=== PATIENT | male | born 1950 | race Two or more races ===

== ENCOUNTER 2023-12-31 10:42 | Emergency (ER) | payer MEDICARE, OTHER ==
[~2023-12-31] VITALS: Ht 175.3 cm; Wt 75.7 kg
[2023-12-31 10:44] VITALS: TEMP 98
[2023-12-31 11:18] VITALS: BP 131/76; PULSE 72; RESP 16; O2SAT 100
[2023-12-31] MEDS ORDERED: LIDO700A32 TOP (11:21)
== END 2023-12-31 11:36 | disposition home or self-care (01) ==
LOC: ER 10:43
DX: M25.511 Pain in right shoulder (principal); Z88.2 Allergy status to sulfonamides; Z88.8 Allergy status to other drugs, medicaments and biological substances; Z79.899 Other long term (current) drug therapy
CPT/HCPCS: 29105; 29125; 73030; 99284; A4565

== ENCOUNTER 2024-03-16 10:56 | Inpatient (IN) | payer MEDICARE ==
[~2024-03-16] VITALS: Ht 175.3 cm; Wt 77.3 kg
[~2024-03-16 10:56] MED LIST: LIDO700A32 TOP
[2024-03-16 12:23] LABS: ALBUMIN 2.7 G/DL (3.4-5.0); ANION GAP 12 (8-16); BLOOD UREA NITROGEN 25 MG/DL (7-18); BUN/CREATININE RATIO 24.3 (10.0-20.0); CALCIUM 9.2 MG/DL (8.5-10.1); CHLORIDE 95 MMOL/L (99-107); CREATININE 1.03 MG/DL (0.60-1.10); GLUCOSE 183 MG/DL (70-104); POTASSIUM 3.5 MMOL/L (3.5-5.1); SODIUM 134 MMOL/L (135-145); TOTAL CARBON DIOXIDE 26.8 MMOL/L (24-32); eCRCL 64 ML/MIN; eGFR 71 ML/MIN
[2024-03-16 12:25] LABS: BASOPHILS % (AUTO) 0.1 % (0-1); EOSINOPHILS % (AUTO) 0 % (0-6); HEMATOCRIT 43.5 % (42.0-52.0); HEMOGLOBIN 14.9 g/dl (14.0-17.9); LYMPHOCYTES # (AUTO) 0.3 X10'3 (1.1-4.8); MEAN CORPUSCULAR HGB CONC 34.1 g/dL (33.0-36.5); MEAN CORPUSCULAR VOLUME 93.9 FL (78-98); MEAN PLATELET VOLUME 8.3 FL (7.4-10.4); MONOCYTES # (AUTO) 0.4 X10'3 (0-0.9); MONOCYTES % (AUTO) 4.5 % (2-12); NEUTROPHILS % (AUTO) 92.4 % (42-75); PLATELET COUNT 167 X10'3 (140-440); RED BLOOD COUNT 4.64 X10'6 (4.70-6.10); RED CELL DISTRIBUTION WIDTH 13.2 % (11.5-14.5); WHITE BLOOD COUNT 8.7 X10'3 (4.5-11.0)
[2024-03-16 12:49] LABS: ALANINE AMINOTRANSFERASE 16 U/L (12-78); ALBUMIN 2.7 G/DL (3.4-5.0); ALBUMIN/GLOBULIN RATIO 0.6 (1.1-1.5); ALKALINE PHOSPHATASE 61 IU/L (46-116); ASPARTATE AMINO TRANSFERASE 18 U/L (10-37); BILIRUBIN,DIRECT 0.5 MG/DL (0-0.3); BILIRUBIN,TOTAL 1.3 MG/DL (0.1-1.0); MAGNESIUM 1.6 MG/DL (1.5-2.4); TOTAL PROTEIN 7.6 G/DL (6.4-8.2)
[2024-03-16] MEDS: CefTRIAXone 2gm/D5W 50ml BAG 50 ML IV ONE (12:50)
[2024-03-16] MEDS: normal saline 1000ML IV soln IV ONE (12:51)
[2024-03-16 13:00] LABS: C-REACTIVE PROTEIN 34.91 MG/DL (0.0-0.5)
[2024-03-16 13:02] LABS: BILIRUBIN,URINE SMALL (Neg); CLARITY,URINE SLIGHTLY CLOUDY (Clear); COLOR,URINE YELLOW (Yellow); GLUCOSE, URINE NEGATIVE (Neg); KETONES,URINE TRACE mg/dl (Neg); LEUKOCYTE ESTERASE ,URINE NEGATIVE (Neg); NITRITES, URINE NEGATIVE (Neg); OCCULT BLOOD,URINE SMALL (Neg); PROTEIN,URINE 100 mg/dl (Neg)
[2024-03-16 13:05] LABS: UA COLLECTION TYPE VOIDED
[2024-03-16 13:17] LABS: COARSE GRANULAR CAST 0-3 /LPF (NEGATIVE); MUCUS STRANDS MODERATE /LPF (Neg); SQUAMOUS EPITHELIAL CELL,UR MANY /LPF (FEW)
[2024-03-16 13:18] LABS: APTT 33 SECONDS (22-32); INR 1.3 INR; PROTHROMBIN TIME 14.1 SECONDS (9.0-12.0)
[2024-03-16 13:19] LABS: BACTERIA,URINE FEW /HPF (Neg); RBC,URINE 0-2 /HPF (0-2); WBC,URINE 0-4 /HPF (0-4)
[2024-03-16 13:26] LABS: PRO BRAIN NATRIURETIC PEPTIDE 575 PG/ML (0-125)
[2024-03-16] MEDS: albuterol 2.5 MG/3 ML nebule NEB ONE (13:36)
[2024-03-16 13:41] VITALS: PULSE 85; PULSE 96; RESP 14; RESP 16; O2SAT 95; O2SAT 97
[2024-03-16] MEDS: methylPREDNISolone sod succ 125mg/2ml vial IV ONE (14:09)
[2024-03-16] MEDS ORDERED: iohexol 350MG/ML 100ml bottle IV ONE (14:24)
[2024-03-16] MEDS ORDERED: ondansetron 4mg rapidly disintigrating tab PO PRN (14:55)
[2024-03-16] MEDS ORDERED: mag hydrox/Alum hydrox/simeth 30ml oral suspension PO PRN (14:55)
[2024-03-16] MEDS ORDERED: magnesium hydroxide 30ml (MOM) UD suspension PO PRN (14:55)
[2024-03-16] MEDS ORDERED: ondansetron/PF 4mg/2ml inj IV PRN (14:55)
[2024-03-16] MEDS ORDERED: acetaminophen 650mg rectal suppository RC PRN (14:55)
[2024-03-16] MEDS ORDERED: bisacodyl 10mg suppository rectal RC PRN (14:55)
[2024-03-16] MEDS ORDERED: diphenhydrAMINE 25mg capsule PO PRN (14:55)
[2024-03-16] MEDS ORDERED: acetaminophen 325mg tablet PO PRN ×2 (14:55)
[2024-03-16] MEDS ORDERED: diphenhydrAMINE 50 mg/ml inj IV PRN (14:55)
[2024-03-16 15:16] LABS: D-DIMER 2.44 MG/L FEU (0-0.50)
[2024-03-16 15:51] LABS: CREATINE KINASE 100 U/L (39-308); LIPASE 11 U/L (16-77); PHOSPHORUS 2.6 MG/DL (2.3-4.5); THYROID STIMULATING HORMONE 2.41 ulU/ml (0.34-4.50)
[2024-03-16] MEDS ORDERED: DEXTROSE 15 GM of carb/4 tabs (each vial/BOTTLE has 4 tablets) PO PRN ×2 (16:00)
[2024-03-16] MEDS ORDERED: glucagon, human recombinant 1mg kit SUBCUT PRN (16:00)
[2024-03-16] MEDS ORDERED: dextrose 50%-water 50ml dispensing syringe IV PRN ×2 (16:00)
[2024-03-16] MEDS: azithromycin/NS 500mg/250ml 250 ML IV ONE (16:12)
[2024-03-16] MEDS: normal saline 1000ml 1,000 ML IV SCH (16:13)
[2024-03-16] MEDS ORDERED: DULO60CA65 PO (17:37)
[2024-03-16] MEDS ORDERED: BUPR8TAB4 SL (17:37)
[2024-03-16] MEDS ORDERED: ATOR20TA66 PO (17:37)
[2024-03-16] MEDS ORDERED: GABA300C PO (17:37)
[2024-03-16] MEDS: INSULIN LISPRO 100 UNIT/ML INSULN.PEN MULTI-DOSE SQ SCH (17:43)
[2024-03-16 17:55] VITALS: BP 104/45; PULSE 77; RESP 18; TEMP 98.4; O2SAT 94
[2024-03-16 18:00] VITALS: BP 105/47; PULSE 77; RESP 12; TEMP 98.8; O2SAT 96
[2024-03-16 18:08] LABS: ABG BASE EXCESS 2.1 mmol/L (-2.0-2.0); ABG HCO3 25.9 mmol/L (22.0-26.0); ABG OXYGEN SATURATION 95.9 % (94-97); ABG PCO2 (T) 37.5 mmHg (35.0-48.0); ABG PH (T) 7.457 (7.340-7.440); ALLEN'S TEST POSITIVE; FCOHb 0.6 % (0.0-3.9); FHHb 4.1 % (0.0-5.0); FLOW 6 L/min; FMetHb 0.3 % (0.0-1.5); MODE NASAL CANNULA; TOTAL HEMOGLOBIN 13.2 G/dl (14.0-17.9)
[2024-03-16] MEDS: methylPREDNISolone sod succ 125mg/2ml vial IV SCH (20:17)
[2024-03-16] MEDS: docusate sod 100mg capsule PO SCH (20:17)
[2024-03-16] MEDS: heparin, porcine 5000 units/ml vial SQ SCH (20:18)
[2024-03-16] MEDS ORDERED: temazepam 15mg capsule PO PRN (21:00)
[2024-03-16 22:00] VITALS: BP 112/56; PULSE 64; RESP 13; TEMP 97.8; O2SAT 98
[2024-03-17] VITALS (7 sets, daily range): BP systolic 86–108; BP diastolic 49–56; PULSE 47–71; RESP 12–18; TEMP 97.2–98.3; O2SAT 92–99
[2024-03-17 07:18] LABS: ALANINE AMINOTRANSFERASE 15 U/L (12-78); ALBUMIN/GLOBULIN RATIO 0.5 (1.1-1.5); ALKALINE PHOSPHATASE 44 IU/L (46-116); ANION GAP 4 (8-16); ASPARTATE AMINO TRANSFERASE 17 U/L (10-37); BILIRUBIN,TOTAL 0.7 MG/DL (0.1-1.0); BLOOD UREA NITROGEN 22 MG/DL (7-18); BUN/CREATININE RATIO 36.1 (10.0-20.0); CHLORIDE 106 MMOL/L (99-107); CHOL/HDL RATIO 1.4 (0.00-4.99); CHOLESTEROL 82 MG/DL (0-200); CREATININE 0.61 MG/DL (0.60-1.10); GLUCOSE 174 MG/DL (70-104); HDL CHOLESTEROL 58 MG/DL (35-60); LDL CHOLESTEROL 21 MG/DL (50-100); POTASSIUM 3.4 MMOL/L (3.5-5.1); SODIUM 139 MMOL/L (135-145); TOTAL CARBON DIOXIDE 29.1 MMOL/L (24-32); TOTAL PROTEIN 6.2 G/DL (6.4-8.2); TRIGLYCERIDES 33 MG/DL (20-135); eCRCL 108 ML/MIN; eGFR > 90 ML/MIN
[2024-03-17 07:20] LABS: BASOPHILS % (AUTO) 0 % (0-1); EOSINOPHILS % (AUTO) 0.1 % (0-6); HEMATOCRIT 37.8 % (42.0-52.0); HEMOGLOBIN 12.7 g/dl (14.0-17.9); LYMPHOCYTES # (AUTO) 0.4 X10'3 (1.1-4.8); LYMPHOCYTES % (AUTO) 6.3 % (21-51); MEAN CORPUSCULAR HEMOGLOBIN 31.7 PG (27.0-31.0); MEAN CORPUSCULAR HGB CONC 33.5 g/dL (33.0-36.5); MEAN CORPUSCULAR VOLUME 94.7 FL (78-98); MEAN PLATELET VOLUME 8.7 FL (7.4-10.4); MONOCYTES # (AUTO) 0.4 X10'3 (0-0.9); MONOCYTES % (AUTO) 5.6 % (2-12); PLATELET COUNT 126 X10'3 (140-440); RED CELL DISTRIBUTION WIDTH 12.9 % (11.5-14.5); WHITE BLOOD COUNT 6.8 X10'3 (4.5-11.0)
[2024-03-17] MEDS: pantoprazole 40mg Tablet.DR PO SCH (07:53)
[2024-03-17] MEDS: CefTRIAXone/D5W-Rocephin 1gm 50 ML IV SCH (07:53)
[2024-03-17] MEDS: azithromycin/NS 500mg/250ml 250 ML IV SCH (08:02)
[2024-03-17] MEDS ORDERED: potassium Cl 20 mEq SR tablet PO PRN (14:25)
[2024-03-17] MEDS: lactose-reduced food (Ensure Enlive) - 237ml bottle PO SCH (18:56)
[2024-03-17] MEDS: potassium Cl 20 mEq SR tablet PO PRN (19:07)
[2024-03-17] MEDS: HYDROcodone/acetaminophen 10/325mg tab PO PRN (19:08)
[2024-03-17] MEDS: ringers solution, lacted 1,000 ML IV ONE (21:25)
[2024-03-18] VITALS (7 sets, daily range): BP systolic 101–119; BP diastolic 52–68; PULSE 44–67; RESP 12–22; TEMP 96.7–97.7; O2SAT 92–96
[2024-03-18] MEDS: morphine 2 MG/ML inj. syringe IV PRN (03:18)
[2024-03-18 07:02] LABS: BASOPHILS % (AUTO) 0 % (0-1); EOSINOPHILS % (AUTO) 0 % (0-6); HEMATOCRIT 36.3 % (42.0-52.0); HEMOGLOBIN 12.3 g/dl (14.0-17.9); LYMPHOCYTES # (AUTO) 0.5 X10'3 (1.1-4.8); LYMPHOCYTES % (AUTO) 7.6 % (21-51); MEAN CORPUSCULAR HEMOGLOBIN 31.8 PG (27.0-31.0); MEAN CORPUSCULAR VOLUME 93.7 FL (78-98); MEAN PLATELET VOLUME 8.8 FL (7.4-10.4); MONOCYTES # (AUTO) 0.4 X10'3 (0-0.9); MONOCYTES % (AUTO) 5.9 % (2-12); NEUTROPHILS # (AUTO) 5.5 X10'3 (1.8-7.7); NEUTROPHILS % (AUTO) 86.5 % (42-75); PLATELET COUNT 164 X10'3 (140-440); RED BLOOD COUNT 3.87 X10'6 (4.70-6.10); WHITE BLOOD COUNT 6.3 X10'3 (4.5-11.0)
[2024-03-18 07:35] LABS: ALANINE AMINOTRANSFERASE 28 U/L (12-78); ALBUMIN 1.9 G/DL (3.4-5.0); ALBUMIN/GLOBULIN RATIO 0.5 (1.1-1.5); ALKALINE PHOSPHATASE 44 IU/L (46-116); ANION GAP 7 (8-16); ASPARTATE AMINO TRANSFERASE 34 U/L (10-37); BILIRUBIN,TOTAL 0.4 MG/DL (0.1-1.0); BLOOD UREA NITROGEN 29 MG/DL (7-18); BUN/CREATININE RATIO 47.5 (10.0-20.0); CALCIUM 8.9 MG/DL (8.5-10.1); CHLORIDE 107 MMOL/L (99-107); CREATININE 0.61 MG/DL (0.60-1.10); GLUCOSE 192 MG/DL (70-104); SODIUM 137 MMOL/L (135-145); TOTAL CARBON DIOXIDE 23.3 MMOL/L (24-32); TOTAL PROTEIN 6.1 G/DL (6.4-8.2); eCRCL 108 ML/MIN; eGFR > 90 ML/MIN
[2024-03-18] MEDS: HYDROcodone/acetaminophen 5mg/325mg tablet PO PRN (21:28)
[2024-03-19] VITALS (7 sets, daily range): BP systolic 120–137; BP diastolic 50–71; PULSE 45–61; RESP 9–16; TEMP 97–98.1; O2SAT 95–98
[2024-03-19 07:34] LABS: ALANINE AMINOTRANSFERASE 33 U/L (12-78); ALBUMIN/GLOBULIN RATIO 0.5 (1.1-1.5); ALKALINE PHOSPHATASE 46 IU/L (46-116); ANION GAP 5 (8-16); ASPARTATE AMINO TRANSFERASE 35 U/L (10-37); BILIRUBIN,TOTAL 0.3 MG/DL (0.1-1.0); BLOOD UREA NITROGEN 30 MG/DL (7-18); BUN/CREATININE RATIO 41.7 (10.0-20.0); CALCIUM 8.9 MG/DL (8.5-10.1); CHLORIDE 107 MMOL/L (99-107); CREATININE 0.72 MG/DL (0.60-1.10); GLUCOSE 202 MG/DL (70-104); SODIUM 136 MMOL/L (135-145); TOTAL CARBON DIOXIDE 23.6 MMOL/L (24-32); TOTAL PROTEIN 6.2 G/DL (6.4-8.2); eCRCL 91 ML/MIN; eGFR > 90 ML/MIN
[2024-03-19 07:40] LABS: POTASSIUM 4.4 MMOL/L (3.5-5.1)
[2024-03-19 13:29] LABS: BASOPHILS % (AUTO) 0.1 % (0-1); EOSINOPHILS % (AUTO) 0 % (0-6); HEMOGLOBIN 13.3 g/dl (14.0-17.9); LYMPHOCYTES # (AUTO) 0.3 X10'3 (1.1-4.8); LYMPHOCYTES % (AUTO) 4.5 % (21-51); MEAN CORPUSCULAR HEMOGLOBIN 31.7 PG (27.0-31.0); MEAN CORPUSCULAR HGB CONC 34.1 g/dL (33.0-36.5); MEAN CORPUSCULAR VOLUME 93.1 FL (78-98); MONOCYTES # (AUTO) 0.3 X10'3 (0-0.9); MONOCYTES % (AUTO) 5.5 % (2-12); NEUTROPHILS # (AUTO) 5.2 X10'3 (1.8-7.7); NEUTROPHILS % (AUTO) 89.9 % (42-75); PLATELET COUNT 217 X10'3 (140-440); RED BLOOD COUNT 4.19 X10'6 (4.70-6.10); RED CELL DISTRIBUTION WIDTH 13.3 % (11.5-14.5); WHITE BLOOD COUNT 5.8 X10'3 (4.5-11.0)
[2024-03-20 02:00] VITALS: BP 137/57; PULSE 50; RESP 16; TEMP 97.1; O2SAT 92
[2024-03-20 06:00] VITALS: BP 134/50; PULSE 54; RESP 16; TEMP 97; O2SAT 96
[2024-03-20 06:44] LABS: BASOPHILS % (AUTO) 0.2 % (0-1); EOSINOPHILS % (AUTO) 0 % (0-6); HEMATOCRIT 39.2 % (42.0-52.0); HEMOGLOBIN 13.2 g/dl (14.0-17.9); LYMPHOCYTES # (AUTO) 0.7 X10'3 (1.1-4.8); LYMPHOCYTES % (AUTO) 10.8 % (21-51); MEAN CORPUSCULAR HEMOGLOBIN 31.3 PG (27.0-31.0); MEAN CORPUSCULAR HGB CONC 33.8 g/dL (33.0-36.5); MEAN CORPUSCULAR VOLUME 92.7 FL (78-98); MEAN PLATELET VOLUME 8.2 FL (7.4-10.4); MONOCYTES # (AUTO) 0.4 X10'3 (0-0.9); MONOCYTES % (AUTO) 6.7 % (2-12); NEUTROPHILS # (AUTO) 5.4 X10'3 (1.8-7.7); NEUTROPHILS % (AUTO) 82.3 % (42-75); PLATELET COUNT 233 X10'3 (140-440); RED BLOOD COUNT 4.23 X10'6 (4.70-6.10); RED CELL DISTRIBUTION WIDTH 13.1 % (11.5-14.5); WHITE BLOOD COUNT 6.6 X10'3 (4.5-11.0)
[2024-03-20 06:55] LABS: ALANINE AMINOTRANSFERASE 33 U/L (12-78); ALBUMIN/GLOBULIN RATIO 0.5 (1.1-1.5); ALKALINE PHOSPHATASE 47 IU/L (46-116); ANION GAP 8 (8-16); ASPARTATE AMINO TRANSFERASE 23 U/L (10-37); BILIRUBIN,TOTAL 0.5 MG/DL (0.1-1.0); BLOOD UREA NITROGEN 20 MG/DL (7-18); CALCIUM 8.3 MG/DL (8.5-10.1); CHLORIDE 107 MMOL/L (99-107); CREATININE 0.74 MG/DL (0.60-1.10); GLUCOSE 211 MG/DL (70-104); POTASSIUM 3.7 MMOL/L (3.5-5.1); SODIUM 138 MMOL/L (135-145); TOTAL CARBON DIOXIDE 23.3 MMOL/L (24-32); TOTAL PROTEIN 5.9 G/DL (6.4-8.2); eCRCL 89 ML/MIN; eGFR > 90 ML/MIN
[2024-03-20] MEDS ORDERED: LEVO750T68 PO (09:40)
[2024-03-20 10:10] VITALS: RESP 14
== END 2024-03-20 10:47 | disposition home or self-care (01) | DRG 871 ==
LOC: ER 10:56 → ED HOLD 14:58 → PCU 3S 17:50
PROVIDERS: ADMIT Family Medicine; ATTEND Family Medicine
PROC: B32T1ZZ Computerized Tomography (CT Scan) of Left Pulmonary Artery using Low Osmolar Contrast (ICD-10-PCS; principal; 2024-03-16)
PROC: B3201ZZ Computerized Tomography (CT Scan) of Thoracic Aorta using Low Osmolar Contrast (ICD-10-PCS; 2024-03-16)
PROC: B32S1ZZ Computerized Tomography (CT Scan) of Right Pulmonary Artery using Low Osmolar Contrast (ICD-10-PCS; 2024-03-16)
PROC: CB121ZZ Planar Nuclear Medicine Imaging of Lungs and Bronchi using Technetium 99m (Tc-99m) (ICD-10-PCS; 2024-03-17)
DX: A41.9 Sepsis, unspecified organism (principal); G93.41 Metabolic encephalopathy; J18.9 Pneumonia, unspecified organism; J96.01 Acute respiratory failure with hypoxia; I50.33 Acute on chronic diastolic (congestive) heart failure; J44.1 Chronic obstructive pulmonary disease with (acute) exacerbation; J44.0 Chronic obstructive pulmonary disease with (acute) lower respiratory infection; I44.1 Atrioventricular block, second degree; R65.20 Severe sepsis without septic shock; G89.4 Chronic pain syndrome; E86.0 Dehydration; I11.0 Hypertensive heart disease with heart failure; E88.09 Other disorders of plasma-protein metabolism, not elsewhere classified; Z20.822 Contact with and (suspected) exposure to COVID-19; E11.9 Type 2 diabetes mellitus without complications; M54.9 Dorsalgia, unspecified; E78.00 Pure hypercholesterolemia, unspecified; Z79.899 Other long term (current) drug therapy; E87.6 Hypokalemia; Z88.2 Allergy status to sulfonamides; Z90.49 Acquired absence of other specified parts of digestive tract; Z88.1 Allergy status to other antibiotic agents; Z88.4 Allergy status to anesthetic agent; Z87.891 Personal history of nicotine dependence
CPT/HCPCS: 36415; 36600; 70450; 71046; 71275; 74177; 78582; 80048; 80053; 80061; 80076; 81001; 82550; 82803; 82948; 83036; 83605; 83690; 83735; 83880; 84100; 84145; 84443; 84484; 85018; 85025; 85379; 85610; 85730; 86140; 87040; 87502; 87503; 87811; 93005; 93306; 94640; 94760; 96365; 96375; 97110; 97161; 99285; A4615; A6212; A9539; A9540; G0378; J0456; J0696; J1644; J1815; J2270; J2919; J3490; J7030; J7040; J7120; Q9967

== ENCOUNTER 2024-05-23 19:08 | Emergency (ER) | payer MEDICARE ==
[~2024-05-23] VITALS: Ht 175.3 cm; Wt 76.4 kg
[~2024-05-23 19:08] MED LIST changes: +ATOR20TA66 PO; +BUPR8TAB4 SL; +DULO60CA65 PO; +GABA300C PO; -LIDO700A32 TOP
[2024-05-23] MEDS: ondansetron 4mg rapidly disintigrating tab PO ONE (22:15)
[2024-05-23] MEDS: HYDROcodone/acetaminophen 10/325mg tab PO ONE (22:15)
[2024-05-23 22:24] VITALS: PULSE 66
[2024-05-23] MEDS ORDERED: HYDR-3972 PO (22:26)
[2024-05-23] MEDS ORDERED: LIDO700A32 TOP (22:28)
[2024-05-23 22:36] VITALS: BP 148/54; RESP 12; TEMP 98.6; O2SAT 98
== END 2024-05-23 22:38 | disposition home or self-care (01) ==
LOC: ER 19:08
DX: S50.01XA Contusion of right elbow, initial encounter (principal); M25.511 Pain in right shoulder; Z88.2 Allergy status to sulfonamides; Z79.899 Other long term (current) drug therapy; E78.00 Pure hypercholesterolemia, unspecified; Z98.890 Other specified postprocedural states; Z90.49 Acquired absence of other specified parts of digestive tract; W19.XXXA Unspecified fall, initial encounter; Y93.89 Activity, other specified; Y92.89 Other specified places as the place of occurrence of the external cause; Y99.8 Other external cause status
CPT/HCPCS: 73060; 73080; 73200; 99285